=== PATIENT | male | born 1965 | race Caucasian/White ===

== ENCOUNTER 2017-03-08 14:19 | Outpatient (CLI) | payer MEDICARE, OTHER ==
[2017-03-08 14:36] LABS: BASOPHILS % 0.5 (0.0-1.5); EOSINOPHILS % 1.3 % (0.0-6.8); MEAN CORPUSCULAR VOLUME 90.9 fl (80.0-100.0); MONOCYTES % 9.2 % (0.0-11.0); NEUTROPHILS # 3.4 # k/uL (1.4-7.7)
[2017-03-08 15:03] LABS: eGFR (African) > 60; eGFR (Non-African) > 60
== END 2017-03-08 14:20 ==
LOC: LAB 14:19
PROVIDERS: ATTEND Family Medicine
DX: Z51.81 Encounter for therapeutic drug level monitoring (principal); R63.4 Abnormal weight loss
CPT/HCPCS: 36415; 80053; 80164; 84443; 85025

== ENCOUNTER → 2017-08-17 | Outpatient (CLI) | payer MEDICARE, OTHER ==
[2017-08-17 08:26] LABS: BASOPHILS % 0.6 (0.0-1.5); MEAN CORPUSCULAR HEMOGLOBIN 30.4 pg (28.0-34.0); MEAN CORPUSCULAR VOLUME 90.8 fl (80.0-100.0); MONOCYTES % 9.6 % (0.0-11.0); NEUTROPHILS # 2.8 # k/uL (1.4-7.7)
[2017-08-17 08:45] LABS: eGFR (African) > 60; eGFR (Non-African) > 60
== END ==
LOC: LAB 08:02
PROVIDERS: ATTEND Family Medicine
DX: R63.4 Abnormal weight loss (principal); Z51.81 Encounter for therapeutic drug level monitoring; E78.1 Pure hyperglyceridemia
CPT/HCPCS: 36415; 80053; 80061; 84443; 85025

== ENCOUNTER 2017-11-09 12:17 | Emergency (ER) | payer MEDICARE, OTHER ==
[2017-11-09] MEDS ORDERED: 0.9 % SODIUM CHLORIDE 500 ML IV ONE (13:43)
--- NOTE | 2017-11-09 13:47 | ED Physician Documentation ---
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 Stated Complaint: choked on roast beef Chief Complaint: General Adult Additional Information: pt eating pkork last noct choked aspirated then vomited-int emesis today whitish foam like material Onset: hours (16 hrs ago) Timing: still present Severity: moderate Further Comments: yes (radiological evidence of haziness rt lower lung lobe) - ROS CONST: no problems EYES/ENT: none CVS/RESP: none GI/: none MS/SKIN/LYMPH: none NEURO/PSYCH: denies: headache, fainting, dizziness, difficulty walking - PAST HX Past History: other (autism mild MR ROYCE anxiety) Immunizations: UTD Allergies/Adverse Reactions: Allergies Allergy/AdvReac Type Severity Reaction Status Date / Time No Known Allergies Allergy Unverified 11/09/17 13:04 Home Medications: Ambulatory Orders Medication Instructions Recorded Clonazepam [Klonopin] 0.5 mg PO HS u2 02/01/13 Olanzapine [Zyprexa] 10 mg PO HS u2 02/01/13 Buspirone HCl [Buspar] 10 mg PO TID 11/09/17 Divalproex Sodium [Depakote ER] 1,000 mg PO HS 11/09/17 Olanzapine [Zyprexa] 5 mg PO [id number] 11/09/17 - SOCIAL HX Smoking History: non-smoker Alcohol Use: none Drug Use: none - FAMILY HX Family History: No - VITAL SIGNS Vital Signs: Vital Signs Temp Pulse Resp BP Pulse Ox 97.1 F L 86 16 130/66 95 11/09/17 12:17 11/09/17 12:17 11/09/17 12:17 11/09/17 12:17 11/09/17 12:17 - REVIEWED ASSESSMENTS Nursing Assessment Reviewed: Yes Vitals Reviewed: Yes ED Results Lab/Radiology - Radiology Radiology Impressions: rt lower lobe congestion - Orders Orders: ED Orders Category Date Time Status Place IV Lock 1T Care 11/09/17 13:43 Ordered CHEST 2VIEW [RAD] Stat Exams 11/09/17 Taken NORMAL SALINE @ 500 MLS/HR(500ml BOLUS) Med 11/09/17 13:43 Ordered 0.9 % Sodium Chloride [Normal Saline] 500 ml IV NOW Piperacillin Sodium/Tazobactam [Zosyn] Med 03/01/18 13:45 Ordered 3.375 gm IV Q6 General Adult Physical Exam - PHYSICAL EXAM GENERAL APPEARANCE: moderate distress EENT: eye inspection normal NECK: normal inspection, supple. No: lymphadenopathy RESPIRATORY: no resp distress. No: breath sounds normal, wheezes, rales ( diffuse-not necessarily in rll) CVS: reg rate & rhythm, heart sounds normal ABDOMEN: soft, non-tender BACK: normal inspection SKIN: warm/dry, normal color. No: cyanosis, diaphoresis, jaundice, mottled EXTREMITIES: non-tender, normal range of motion NEURO: oriented X3, motor nml, sensation nml, mood/affect nml Discharge Clincal Impression: aspiration pneumonia rt lower lobe Referrals: Lawrence Miguel MD [Primary Care Provider] - 2 Days Comments: meds as given and ordered Condition: Fair Disposition: 01 HOME, SELF-CARE Decision to Admit: NO Decision Time: 14:17
--- NOTE | 2017-11-09 13:48 | Diagnostic Imaging Report ---
SHON REYES [facility] [id number] [facility].[address] [id number] Report Submission Date: Nov 09, 2017 1:23:55 PM SOCIETY EDITOR Patient Study Name: MILADIS BOLANOS Date: Nov 09, 2017 1:10:37 PM SOCIETY EDITOR Modality Type: DX Gender: M Description: CHEST : 61 Institution: [facility] Physician: SHON REYES Examination: PA and lateral chest. History: ASPIRATION OF FOOD (Hx) Comparison exam: None provided. Findings: PA lateral chest demonstrate a normal cardiac and mediastinal silhouette. Mild parenchymal haze involving the right infrahilar region. No peripheral consolidative process. No blunting of the costophrenic margins. Osseous structures are appropriate for age. Impression: Mild right infrahilar haziness/infiltrate. No effusion. Electronically signed on Nov 09, 2017 1:23:55 PM SOCIETY EDITOR by: Fabricio LOREDO
[2017-11-09] MEDS ORDERED: PIPERACILLIN SODIUM/TAZOBACTAM 3.375 GM VIAL IV ONE (14:04)
[2017-11-09] MEDS: PIPERACILLIN SODIUM/TAZOBACTAM 3.375 GM VIAL IV SCH (14:15)
[2017-11-09 14:32] VITALS: BP 113/61
== END 2017-11-09 14:35 | disposition home or self-care (01) ==
LOC: ED 12:17
DX: J69.0 Pneumonitis due to inhalation of food and vomit (principal)
CPT/HCPCS: 71046; J2543; 96365; 96375; 99283; S1016